=== PATIENT | female | born 1970 | race Caucasian/White ===

== ENCOUNTER 2019-01-03 07:05 | Inpatient (IN) | payer OTHER ==
[2019-01-03] MEDS ORDERED: ACETAMINOPHEN 1000 MG/100 ML VIAL (NON FORMULARY) IVPB ONE (08:01)
[2019-01-03] MEDS ORDERED: SODIUM CHLORIDE 1,000 ML IV STA ×2 (08:01→09:41)
[2019-01-03] MEDS ORDERED: METOCLOPRAMIDE HCL INJECTION 10 MG/2 ML VIAL IVPB ONE (08:01)
--- NOTE | 2019-01-03 08:07 | PDOC ---
History of Present Illness - General Chief Complaint: Headache Stated Complaint: HEADACHE Time Seen by Provider: 01/03/19 07:32 History Source: Patient Exam Limitations: No Limitations Past History - Travel Traveled outside of the country in the last 30 days: No Close contact w/someone who was outside of country & ill: No - Past Medical History Allergies/Adverse Reactions: Allergies Allergy/AdvReac Type Severity Reaction Status Date / Time No Known Allergies Allergy Verified 01/03/19 07:16 Home Medications: Ambulatory Orders NK [No Known Home Medication] 01/03/19 COPD: No Disorders: No Kidney Stones: No - Surgical History Cardiac Surgery: No GI Surgery: No - Immunization History TDAP Vaccination: No Immunization Up to Date: No - Suicide/Smoking/Psychosocial Hx Smoking History: Never smoked Have you smoked in the past 12 months: No Information on smoking cessation initiated: No Hx Alcohol Use: No Drug/Substance Use Hx: No Review of Systems - Review of Systems Able to Perform ROS?: Yes Comments:: 01/03/19 08:02 CONSTITUTIONAL: Absent: fever, chills, diaphoresis, generalized weakness, malaise, loss of appetite HEENT: Absent: rhinorrhea, nasal congestion, throat pain, throat swelling, difficulty swallowing, mouth swelling, ear pain, eye pain, visual Changes CARDIOVASCULAR: Absent: chest pain, loss of consciousness, palpitations, irregular heart rate, peripheral edema RESPIRATORY: Absent: cough, shortness of breath, dyspnea with exertion, orthopnea, wheezing, stridor, hemoptysis GASTROINTESTINAL: Absent: abdominal pain, abdominal distension, nausea, vomiting, diarrhea, constipation, melena, hematochezia GENITOURINARY: Absent: dysuria, frequency, urgency, hesitancy, hematuria, flank pain, genital pain MUSCULOSKELETAL: Absent: myalgia, arthralgia, joint swelling SKIN: Absent: rash, itching, pallor HEMATOLOGIC/IMMUNOLOGIC: Absent: easy bleeding, easy bruising, lymphadenopathy, frequent infections ENDOCRINE: Absent: unexplained weight gain, unexplained weight loss, heat intolerance, cold intolerance NEUROLOGIC: Present: headache, memory loss Absent: headache, focal weakness or paresthesias , dizziness, unsteady gait, seizure, mental status changes, bladder or bowel incontinence PSYCHIATRIC: Absent: anxiety, depression, suicidal or homicidal ideation, hallucinations. Is the patient limited Moldovan proficient: No *Physical Exam - Vital Signs Last Vital Signs Temp Pulse Resp BP Pulse Ox 98.2 F 64 16 128/72 97 01/03/19 07:17 01/03/19 07:17 01/03/19 07:17 01/03/19 07:17 01/03/19 07:17 - Physical Exam Comments: 01/03/19 08:02 GENERAL: Well developed, well nourished. Awake and alert x2; unable to recall birthday. No acute distress. HEENT: Normocephalic, atraumatic. PERRLA, EOMI. No conjunctival pallor. Sclera are non- icteric. Moist mucous membranes. Oropharynx is clear. NECK: Supple. Full ROM. No JVD. Carotid pulses 2+ and symmetric, without bruits. No thyromegaly. No lymphadenopathy. CARDIOVASCULAR: Regular rate and rhythm. No murmurs, rubs, or gallops. Distal pulses are 2+ and symmetric. PULMONARY: No evidence of respiratory distress. Lungs clear to auscultation bilaterally. No wheezing, rales or rhonchi. ABDOMINAL: Soft. Non-tender. Non-distended. No rebound or guarding. No organomegaly. Normoactive bowel sounds. MUSCULOSKELETAL Normal range of motion at all joints. No bony deformities or tenderness. No CVA tenderness. EXTREMITIES: No cyanosis. No clubbing. No edema. No calf tenderness. SKIN: Warm and dry. Normal capillary refill. No rashes. No jaundice. NEUROLOGICAL: Alert, awake, appropriate. Cranial nerves 2-12 intact. No deficits to light touch and temperature in face, upper extremities and lower extremities. No motor deficits in the in face, upper extremities and lower extremities. Normoreflexic in the upper and lower extremities. Normal speech. Toes are down- going bilaterally. Gait is normal without ataxia. PSYCHIATRIC: Cooperative. Good eye contact. Appropriate mood and affect. ED Treatment Course - LABORATORY CBC & Chemistry Diagram: 01/03/19 08:10 01/03/19 08:10 Medical Decision Making - Medical Decision Making 01/03/19 08:03 The patient is a 48-year-old female with no past medical history, who presents to the emergency department today for headache starting last night and memory loss. She is accompanied by her daughter. Her daughter states that last night at approximately 10:00 her mother complained of a headache. She also states that her mother did not recall the events from yesterday and that the patient did not remember going to a birthday republican. She states that today her mother is still having memory problems while complaining of headache. denies fevers, chills, shortness of breath, chest pain, nausea, vomiting and urinary symptoms, LOC, lightheadedness and weakness. A/P: Headache with memory loss On exam patient unable to recall her birthday.When questioned she does not remember what happened yesterday. She does know her name and where she is today. neurological exam is grossly intact. DDX includes: transient global amnesia, complex migraine, stroke Labs, EKG, urine, head CT, migraine cocktail Probable admission for MRI Re-evaluate Case discussed with Dr. Monson 01/03/19 08:12 EKG: NSR rate 62 BPM, Qtc 458. Normal axis. No acute ST-T wave changes 01/03/19 09:46 Pt able to recall birthday at this time; still unable to recall the events of yesterday CT Head and labs essentially negative at this time Spoke with Dr. Schuster, likely global transient amnesia at this time; can give toradol. If symptoms resolve, may DC Medicate and re-evaluate 01/03/19 11:11 Headache has resolved at this time; however, pt still unable to remember the events of yesterday Cannot remember name of PCP Will admit to Dr. Garcia, page sent and L/M on her voice mail. 01/03/19 12:[address] Garcia 01/03/19 12:34 Left additional voicemail for Dr. Garcia 01/03/19 15:[address] Garcia. Pt admitted to Dr. Lopez through [facility], Case discussed with Dr. Pennington *DC/Admit/Observation/Transfer Diagnosis at time of Disposition: TGA (transient global amnesia) - Discharge Dispostion Condition at time of disposition: Stable Decision to Admit order: Yes - Referrals - Patient Instructions - Post Discharge Activity
[2019-01-03 08:33] LABS: EPI CELLS 4.7 /HPF (0-5/HPF); HYALINE CASTS 0 /lpf (0-8); PH,URINE 6.5 (5.0-8.0); URINE APPEARANCE CLEAR; URINE BACTERIA 98.4 /hpf (NEGATIVE); URINE BILIRUBIN NEGATIVE (NEGATIVE); URINE COLOR YELLOW; URINE GLUCOSE (UA) NEGATIVE (NEGATIVE); URINE KETONE NEGATIVE (NEGATIVE); URINE LEUK ESTERASE 1+ (NEGATIVE); URINE NITRITE NEGATIVE (NEGATIVE); URINE PROTEIN NEGATIVE (NEGATIVE); URINE RBC 1 /hpf (0-4); URINE UROBILINOGEN 0.2 mg/dL (0.2-1.0); URINE WBC 4 /hpf (0-5)
[2019-01-03] MEDS ORDERED: ACETAMINOPHEN INJECTION 100 ML IVPB ONE (08:35)
[2019-01-03] MEDS ORDERED: METOCLOPRAMIDE HCL INJECTION 10 MG/2 ML VIAL ONE (08:35)
[2019-01-03 08:39] LABS: BASO % 1.1 % (0-2.0); EOS % 2.9 % (0-4.5); HEMATOCRIT 40.2 % (32.4-45.2); HEMOGLOBIN 13.7 GM/dL (10.7-15.3); LYMPH % 20.2 % (8-40); MCH 30.5 pg (25.7-33.7); MEAN CELL VOLUME 89.8 fl (80-96); MEAN PLT VOLUME 8.4 fl (7.5-11.1); MONO % 6.4 % (3.8-10.2); NEUT % 69.4 % (42.8-82.8); PLATELET COUNT 302 K/MM3 (134-434); RBC 4.48 M/mm3 (3.60-5.2); RDW 14.5 % (11.6-15.6); WHITE BLOOD COUNT 6.5 K/mm3 (4.0-10.0)
[2019-01-03 09:08] LABS: INR 0.94 (0.83-1.09); PROTHROMBIN TIME (PATIENT) 11.1 SEC (9.7-13.0)
[2019-01-03 09:17] LABS: ALBUMIN 3.5 g/dl (3.4-5.0); ALK PHOS 118 U/L (45-117); ANION GAP 3 MMOL/L (8-16); BILIRUBIN,TOTAL 0.5 mg/dL (0.2-1); BLOOD UREA NITROGEN 15.5 mg/dL (7-18); CALCIUM 8.7 mg/dL (8.5-10.1); CHLORIDE 106 mmol/L (98-107); CO2 30 mmol/L (21-32); CREATININE 0.5 mg/dL (0.55-1.3); GLUCOSE,RANDOM 109 mg/dL (74-106); POTASSIUM 4.5 mmol/L (3.5-5.1); SGOT/AST 27 U/L (15-37); SGPT/ALT 47 U/L (13-61); SODIUM 139 mmol/L (136-145); TOT PROT 6.9 g/dl (6.4-8.2)
[2019-01-03] MEDS ORDERED: KETOROLAC TROMETHAMINE 30 MG/1 ML VIAL IVPUSH ONE (09:41)
[2019-01-03] MEDS ORDERED: KETOROLAC TROMETHAMINE 30 MG/1 ML VIAL ONE (09:46)
--- NOTE | 2019-01-03 11:59 | EKG ---
Test Reason : Blood Pressure : / mmHG Vent. Rate : 062 BPM Atrial Rate : 062 BPM P-R Int : 140 ms QRS Dur : 088 ms QT Int : 452 ms P-R-T Axes : 061 019 026 degrees QTc Int : 458 ms NORMAL SINUS RHYTHM NORMAL ECG NO PREVIOUS ECGS AVAILABLE Confirmed by DORYS HAMILTON MD ([id number]) on 01/03/2019 11:58:41 AM Referred By: Confirmed By:DORYS HAMILTON MD
[2019-01-03] MEDS ORDERED: HEPARIN NA (PORCINE) 5,000 UNITS/ML 1ML VIAL ONE ×2 (15:46→22:13)
[2019-01-03] MEDS: HEPARIN NA (PORCINE) 5,000 UNITS/ML 1ML VIAL SQ SCH ×2 (15:47→22:39)
--- NOTE | 2019-01-03 15:53 | HP ---
CHIEF COMPLAINT: amnesia, headache PCP: none HISTORY OF PRESENT ILLNESS: Pt is a 48 y/o F from [facility] [place] (has been in [place] for several years) who presented to ED brought by daughter (present at bedside to help in history) because of headache and loss of memory. Pt was at a family gathering (evidently a going away green party for pts mother) yesterday evening when she was struck by severe headache and subsequently by memory loss. At this time, pt has no recollection of the green party. Her memory of this morning is intact. The daughter states that she received a call from a relative attending the event saying that the patient was complaining of bad headache and memory loss. Daughter states that she believes symptoms may have started shortly after pts mother left to fly back to [facility]. She could not think of any other antecedent events to the pts symptoms. Pt was stable in ED. Neurology was reportedly called and suggested diagnosis of transient global amnesia as a possibility. Pt currently feels ok. ER course was notable for: (1) normal vital signs and labs (2) (3) Recent Travel: none PAST MEDICAL HISTORY: none PAST SURGICAL HISTORY: none Social History: Smoking: none Alcohol: rare social drinker Drugs: denies Family History: denies Allergies No Known Allergies Allergy (Verified 01/03/19 07:16) HOME MEDICATIONS: Home Medications Medication Instructions Recorded NK [No Known Home Medication] 01/03/19 REVIEW OF SYSTEMS CONSTITUTIONAL: Absent: fever, chills, diaphoresis, generalized weakness, malaise, loss of appetite, weight change HEENT: Absent: rhinorrhea, nasal congestion, throat pain, throat swelling, difficulty swallowing, mouth swelling, ear pain, eye pain, visual changes CARDIOVASCULAR: Absent: chest pain, syncope, palpitations, irregular heart rate, lightheadedness , peripheral edema RESPIRATORY: Absent: cough, shortness of breath, dyspnea with exertion, orthopnea, wheezing, stridor, hemoptysis GASTROINTESTINAL: Absent: abdominal pain, abdominal distension, nausea, vomiting, diarrhea, constipation, melena, hematochezia GENITOURINARY: Absent: dysuria, frequency, urgency, hesitancy, hematuria, flank pain, genital pain MUSCULOSKELETAL: Absent: myalgia, arthralgia, joint swelling, back pain, neck pain SKIN: Absent: rash, itching, pallor HEMATOLOGIC/IMMUNOLOGIC: Absent: easy bleeding, easy bruising, lymphadenopathy, frequent infections ENDOCRINE: Absent: unexplained weight gain, unexplained weight loss, heat intolerance, cold intolerance NEUROLOGIC: amnesia Absent: headache, focal weakness or paresthesias, dizziness, unsteady gait, seizure, mental status changes, bladder or bowel incontinence PSYCHIATRIC: Absent: anxiety, depression, suicidal or homicidal ideation, hallucinations. PHYSICAL EXAMINATION Vital Signs - 24 hr 01/03/19 01/03/19 07:17 12:27 Temperature 98.2 F 97.8 F Pulse Rate 64 Pulse Rate [ 59 L Right] Respiratory 16 Rate Blood Pressure 128/72 Blood Pressure 102/63 [Right Arm] O2 Sat by Pulse 97 99 Oximetry (%) GENERAL: Awake, alert, and fully oriented, in no acute distress. HEAD: Normal with no signs of trauma. EYES: Pupils equal, round and reactive to light, extraocular movements intact, sclera anicteric, conjunctiva clear. No lid lag. EARS, NOSE, THROAT: Ears normal, nares patent, oropharynx clear without exudates. Moist mucous membranes. NECK: Normal range of motion, supple without lymphadenopathy, JVD, or masses. LUNGS: Breath sounds equal, clear to auscultation bilaterally. No wheezes, and no crackles. No accessory muscle use. HEART: Regular rate and rhythm, normal S1 and S2 without murmur, rub or gallop. ABDOMEN: Soft, nontender, not distended, normoactive bowel sounds, no guarding, no rebound, no masses. No hepatomegaly or splenomegaly. MUSCULOSKELETAL: Normal range of motion at all joints. No bony deformities or tenderness. No CVA tenderness. UPPER EXTREMITIES: 2+ pulses, warm, well-perfused. No cyanosis. No clubbing. No peripheral edema. LOWER EXTREMITIES: 2+ pulses, warm, well-perfused. No calf tenderness. No peripheral edema. NEUROLOGICAL: Cranial nerves II-XII intact. Normal speech. PSYCHIATRIC: Cooperative. Good eye contact. Appropriate mood and affect. SKIN: Warm, dry, normal turgor, no rashes or lesions noted, normal capillary refill. Laboratory Results - last 24 hr 01/03/19 01/03/19 01/03/19 08:08 08:08 08:10 WBC RBC Hgb Hct MCV MCH MCHC RDW Plt Count MPV Absolute Neuts (auto) Neutrophils % Lymphocytes % Monocytes % Eosinophils % Basophils % Nucleated RBC % PT with INR INR Sodium 139 Potassium 4.5 Chloride 106 Carbon Dioxide 30 Anion Gap 3 L BUN 15.5 Creatinine 0.5 L Est GFR (CKD-EPI)AfAm 132.65 Est GFR (CKD-EPI)NonAf 114.45 Random Glucose 109 H Calcium 8.7 Total Bilirubin 0.5 AST 27 ALT 47 Alkaline Phosphatase 118 H Creatine Kinase 96 Troponin I < 0.02 Total Protein 6.9 Albumin 3.5 Urine Color Yellow Urine Appearance Clear Urine pH 6.5 Ur Specific [place] 1.018 Urine Protein Negative Urine Glucose (UA) Negative Urine Ketones Negative Urine Blood Negative Urine Nitrite Negative Urine Bilirubin Negative Urine Urobilinogen 0.2 Ur Leukocyte Esterase 1+ H Urine WBC (Auto) 4 Urine RBC (Auto) 1 Urine Casts (Auto) 0 U Epithel Cells (Auto) 4.7 Urine Bacteria (Auto) 98.4 Urine HCG, Qual Negative 01/03/19 01/03/19 08:10 08:10 WBC 6.5 RBC 4.48 Hgb 13.7 Hct 40.2 MCV 89.8 MCH 30.5 MCHC 34.0 RDW 14.5 Plt Count 302 MPV 8.4 Absolute Neuts (auto) 4.5 Neutrophils % 69.4 Lymphocytes % 20.2 Monocytes % 6.4 Eosinophils % 2.9 Basophils % 1.1 Nucleated RBC % 0 PT with INR 11.10 INR 0.94 Sodium Potassium Chloride Carbon Dioxide Anion Gap BUN Creatinine Est GFR (CKD-EPI)AfAm Est GFR (CKD-EPI)NonAf Random Glucose Calcium Total Bilirubin AST ALT Alkaline Phosphatase Creatine Kinase Troponin I Total Protein Albumin Urine Color Urine Appearance Urine pH Ur Specific [place] Urine Protein Urine Glucose (UA) Urine Ketones Urine Blood Urine Nitrite Urine Bilirubin Urine Urobilinogen Ur Leukocyte Esterase Urine WBC (Auto) Urine RBC (Auto) Urine Casts (Auto) U Epithel Cells (Auto) Urine Bacteria (Auto) Urine HCG, Qual ASSESSMENT/PLAN: Pt is a 48 y/o F with no PMH who presents with headache and retrograde amnesia possibly following an emotional event. #Amnesia -persistent retrograde amnesia limited to last nights family green party -denies any heavy drinking/ingestion of any mind altering substance -neuro consulted -brain mri -tele Visit type - Emergency Visit Emergency Visit: Yes ED Registration Date: 01/03/19 Care time: The patient presented to the Emergency Department on the above date and was hospitalized for further evaluation of their emergent condition. - New Patient This patient is new to me today: Yes Date on this admission: 01/03/19 - Critical Care Critical Care patient: No ATTENDING PHYSICIAN STATEMENT I saw and evaluated the patient. I reviewed the resident's note and discussed the case with the resident. I agree with the resident's findings and plan as documented. SUBJECTIVE: OBJECTIVE: ASSESSMENT AND PLAN:
--- NOTE | 2019-01-03 16:14 | PN ---
Teaching Attending Note Name of Resident: Dexter Pennington ATTENDING PHYSICIAN STATEMENT I saw and evaluated the patient. I reviewed the resident's note and discussed the case with the resident. I agree with the resident's findings and plan as documented with exceptions below. SUBJECTIVE: 48 yof with no significant PMHx admitted with headache, reports of no recollection of events yesterday in the evening. But remembers events from this AM. Headache has resolved but still with no recollection. Denies any weakness, speech disturbances, LOC, dizziness or any concerns otherwise. OBJECTIVE: Vital Signs Period Temp Pulse Resp BP Sys/Stephens Pulse Ox Last 24 Hr 97.8 F-98.2 F 59-64 16 102-128/63-72 97-99 Intake & Output 12/31/18 01/01/19 01/02/19 01/03/19 23:59 23:59 23:59 23:59 Weight 150 lb GENERAL: Awake, alert, and fully oriented, in no acute distress. HEAD: Normal with no signs of trauma. EYES: Pupils equal, round and reactive to light, extraocular movements intact, sclera anicteric, conjunctiva clear. No lid lag. EARS, NOSE, THROAT: Ears normal, nares patent, oropharynx clear without exudates. Moist mucous membranes. NECK: Normal range of motion, supple without lymphadenopathy, JVD, or masses. LUNGS: Breath sounds equal, clear to auscultation bilaterally. No wheezes, and no crackles. No accessory muscle use. HEART: Regular rate and rhythm, normal S1 and S2 without murmur, rub or gallop. ABDOMEN: Soft, nontender, not distended, normoactive bowel sounds, no guarding, no rebound, no masses. No hepatomegaly or splenomegaly. MUSCULOSKELETAL: Normal range of motion at all joints. No bony deformities or tenderness. No CVA tenderness. UPPER EXTREMITIES: 2+ pulses, warm, well-perfused. No cyanosis. No clubbing. No peripheral edema. LOWER EXTREMITIES: 2+ pulses, warm, well-perfused. No calf tenderness. No peripheral edema. NEUROLOGICAL: AAOx3, facial symmetry, tongue midline, sensation intact and symmetic to light touch, toes downgoing, DTR bilaterally symmetric, speech normal, PERRL, EOMI, Cranial nerves II-XII intact. Normal speech. PSYCHIATRIC: Cooperative. Good eye contact. Appropriate mood and affect. SKIN: Warm, dry, normal turgor, no rashes or lesions noted, normal capillary refill. Home Medications Medication Instructions Recorded NK [No Known Home Medication] 01/03/19 Active Medications Heparin Sodium (Porcine) (Heparin -) 5,000 unit SQ TID DANILO Last Admin: 01/03/19 15:47 Dose: 5,000 unit Laboratory Results - last 24 hr 01/03/19 01/03/19 01/03/19 08:08 08:08 08:10 WBC RBC Hgb Hct MCV MCH MCHC RDW Plt Count MPV Absolute Neuts (auto) Neutrophils % Lymphocytes % Monocytes % Eosinophils % Basophils % Nucleated RBC % PT with INR INR Sodium 139 Potassium 4.5 Chloride 106 Carbon Dioxide 30 Anion Gap 3 L BUN 15.5 Creatinine 0.5 L Est GFR (CKD-EPI)AfAm 132.65 Est GFR (CKD-EPI)NonAf 114.45 Random Glucose 109 H Calcium 8.7 Total Bilirubin 0.5 AST 27 ALT 47 Alkaline Phosphatase 118 H Creatine Kinase 96 Troponin I < 0.02 Total Protein 6.9 Albumin 3.5 Urine Color Yellow Urine Appearance Clear Urine pH 6.5 Ur Specific [place] 1.018 Urine Protein Negative Urine Glucose (UA) Negative Urine Ketones Negative Urine Blood Negative Urine Nitrite Negative Urine Bilirubin Negative Urine Urobilinogen 0.2 Ur Leukocyte Esterase 1+ H Urine WBC (Auto) 4 Urine RBC (Auto) 1 Urine Casts (Auto) 0 U Epithel Cells (Auto) 4.7 Urine Bacteria (Auto) 98.4 Urine HCG, Qual Negative 01/03/19 01/03/19 08:10 08:10 WBC 6.5 RBC 4.48 Hgb 13.7 Hct 40.2 MCV 89.8 MCH 30.5 MCHC 34.0 RDW 14.5 Plt Count 302 MPV 8.4 Absolute Neuts (auto) 4.5 Neutrophils % 69.4 Lymphocytes % 20.2 Monocytes % 6.4 Eosinophils % 2.9 Basophils % 1.1 Nucleated RBC % 0 PT with INR 11.10 INR 0.94 Sodium Potassium Chloride Carbon Dioxide Anion Gap BUN Creatinine Est GFR (CKD-EPI)AfAm Est GFR (CKD-EPI)NonAf Random Glucose Calcium Total Bilirubin AST ALT Alkaline Phosphatase Creatine Kinase Troponin I Total Protein Albumin Urine Color Urine Appearance Urine pH Ur Specific [place] Urine Protein Urine Glucose (UA) Urine Ketones Urine Blood Urine Nitrite Urine Bilirubin Urine Urobilinogen Ur Leukocyte Esterase Urine WBC (Auto) Urine RBC (Auto) Urine Casts (Auto) U Epithel Cells (Auto) Urine Bacteria (Auto) Urine HCG, Qual C T brain results reviewed EKG: NSR, no acute ST-T changes ASSESSMENT AND PLAN: 48 yof with headache and transient global amnesia -Headache -Transient global amnesia Plan: CT brain neg Neurology input MRI brain Overnight telemetry Admit to obs, discussed with patient and daughter. Total admit time 45 min.
[2019-01-03] MEDS ORDERED: ACETAMINOPHEN 325 MG TABLET (FP) PO PRN (18:10)
[2019-01-03 21:20] LABS: COCAINE, UR NEGATIVE ng/ml (CUTOFF=300); METHADONE, UR NEGATIVE ng/ml (CUTOFF=300); OPIATES, URI NEGATIVE ng/ml (CUTOFF=300); PHENCYCLIDINE,URINE NEGATIVE ng/ml (CUTOFF=25); URINE AMPHETAMINES NEGATIVE ng/ml (CUTOFF=500); URINE BARBITURATES NEGATIVE ng/ml (CUTOFF=200); URINE BENZODIAZEPINES NEGATIVE ng/ml (CUTOFF=200)
[2019-01-04 06:45] LABS: HEMATOCRIT 37.7 % (32.4-45.2); HEMOGLOBIN 12.8 GM/dL (10.7-15.3); MCH 30.6 pg (25.7-33.7); MEAN PLT VOLUME 8.8 fl (7.5-11.1); PLATELET COUNT 278 K/MM3 (134-434); RBC 4.19 M/mm3 (3.60-5.2); RDW 14.5 % (11.6-15.6); WHITE BLOOD COUNT 5.8 K/mm3 (4.0-10.0)
[2019-01-04] MEDS ORDERED: HEPARIN NA (PORCINE) 5,000 UNITS/ML 1ML VIAL ONE ×2 (06:46→16:20)
[2019-01-04] MEDS: HEPARIN NA (PORCINE) 5,000 UNITS/ML 1ML VIAL SQ SCH ×3 (06:51→21:30)
[2019-01-04 06:56] LABS: BLOOD UREA NITROGEN 12.4 mg/dL (7-18); CALCIUM 7.9 mg/dL (8.5-10.1); CREATININE 0.4 mg/dL (0.55-1.3); POTASSIUM 3.3 mmol/L (3.5-5.1)
--- NOTE | 2019-01-04 09:15 | CONSULT ---
Consult - text type - Consultation Consultation Note: Neurology CHIEF COMPLAINT: amnesia, headache HISTORY OF PRESENT ILLNESS: 48 y/o F from [facility] (has been in [place]) who presented to ED brought by daughter (present at bedside to help in history) because of headache and loss of memory. Pt was at a family gathering (evidently a going away constitution party for pts mother) evening prior to admission when she developed a severe headache and subsequently by memory loss. At this time, pt has no recollection of the constitution party. The daughter stated that she received a call from a relative attending the event saying that the patient was complaining of bad headache and memory loss. Daughter stated that she believes symptoms may have started shortly after pts mother left to fly back to [facility]. She could not think of any other antecedent events to the pts symptoms. contacted by the emergency room resident and noncontrast head CT was negative. Advised that patient can follow up as outpatient if headache improves. Patient was admitted for further imaging an MRI brain. Awaiting completion and patient inquiring about discharge. She reports feeling at baseline without any complaints. Recent Travel: none PAST MEDICAL HISTORY: none PAST SURGICAL HISTORY: none Social History: Smoking: none Alcohol: rare social drinker Drugs: denies Family History: HTN Allergies No Known Allergies Allergy (Verified 01/03/19 07:16) HOME MEDICATIONS: Home Medications Medication Instructions Recorded NK [No Known Home Medication] 01/03/19 REVIEW OF SYSTEMS CONSTITUTIONAL: Absent: fever, chills, diaphoresis, generalized weakness, malaise, loss of appetite, weight change HEENT: Absent: rhinorrhea, nasal congestion, throat pain, throat swelling, difficulty swallowing, mouth swelling, ear pain, eye pain, visual changes CARDIOVASCULAR: Absent: chest pain, syncope, palpitations, irregular heart rate, lightheadedness , peripheral edema RESPIRATORY: Absent: cough, shortness of breath, dyspnea with exertion, orthopnea, wheezing, stridor, hemoptysis GASTROINTESTINAL: Absent: abdominal pain, abdominal distension, nausea, vomiting, diarrhea, constipation, melena, hematochezia GENITOURINARY: Absent: dysuria, frequency, urgency, hesitancy, hematuria, flank pain, genital pain MUSCULOSKELETAL: Absent: myalgia, arthralgia, joint swelling, back pain, neck pain SKIN: Absent: rash, itching, pallor HEMATOLOGIC/IMMUNOLOGIC: Absent: easy bleeding, easy bruising, lymphadenopathy, frequent infections ENDOCRINE: Absent: unexplained weight gain, unexplained weight loss, heat intolerance, cold intolerance NEUROLOGIC: amnesia Absent: headache, focal weakness or paresthesias, dizziness, unsteady gait, seizure, mental status changes, bladder or bowel incontinence PSYCHIATRIC: Absent: anxiety, depression, suicidal or homicidal ideation, hallucinations. PHYSICAL EXAMINATION Vital Signs Period Temp Pulse Resp BP Sys/Stephens Pulse Ox Last 24 Hr 97.8 F 59-80 102-130/60-70 99 GENERAL: Awake, alert, and fully oriented, in no acute distress. HEAD: Normal with no signs of trauma. EYES: Pupils equal, round and reactive to light, extraocular movements intact, sclera anicteric, conjunctiva clear. No lid lag. EARS, NOSE, THROAT: Ears normal, nares patent, oropharynx clear without exudates. Moist mucous membranes. NECK: Normal range of motion, supple without lymphadenopathy, JVD, or masses. LUNGS: Breath sounds equal, clear to auscultation bilaterally. No wheezes, and no crackles. No accessory muscle use. HEART: Regular rate and rhythm, normal S1 and S2 without murmur, rub or gallop. ABDOMEN: Soft, nontender, not distended, normoactive bowel sounds, no guarding, no rebound, no masses. No hepatomegaly or splenomegaly. MUSCULOSKELETAL: Normal range of motion at all joints. No bony deformities or tenderness. No CVA tenderness. UPPER EXTREMITIES: 2+ pulses, warm, well-perfused. No cyanosis. No clubbing. No peripheral edema. LOWER EXTREMITIES: 2+ pulses, warm, well-perfused. No calf tenderness. No peripheral edema. NEUROLOGICAL: Cranial nerves II-XII intact. Normal speech. PSYCHIATRIC: Cooperative. Good eye contact. Appropriate mood and affect. SKIN: Warm, dry, normal turgor, no rashes or lesions noted, normal capillary refill. Laboratory Results - last 24 hr 01/03/19 01/03/19 01/03/19 08:08 08:08 08:10 WBC RBC Hgb Hct MCV MCH MCHC RDW Plt Count MPV Absolute Neuts (auto) Neutrophils % Lymphocytes % Monocytes % Eosinophils % Basophils % Nucleated RBC % PT with INR INR Sodium 139 Potassium 4.5 Chloride 106 Carbon Dioxide 30 Anion Gap 3 L BUN 15.5 Creatinine 0.5 L Est GFR (CKD-EPI)AfAm 132.65 Est GFR (CKD-EPI)NonAf 114.45 Random Glucose 109 H Calcium 8.7 Total Bilirubin 0.5 AST 27 ALT 47 Alkaline Phosphatase 118 H Creatine Kinase 96 Troponin I < 0.02 Total Protein 6.9 Albumin 3.5 Urine Color Yellow Urine Appearance Clear Urine pH 6.5 Ur Specific [place] 1.018 Urine Protein Negative Urine Glucose (UA) Negative Urine Ketones Negative Urine Blood Negative Urine Nitrite Negative Urine Bilirubin Negative Urine Urobilinogen 0.2 Ur Leukocyte Esterase 1+ H Urine WBC (Auto) 4 Urine RBC (Auto) 1 Urine Casts (Auto) 0 U Epithel Cells (Auto) 4.7 Urine Bacteria (Auto) 98.4 Urine HCG, Qual Negative 01/03/19 01/03/19 08:10 08:10 WBC 6.5 RBC 4.48 Hgb 13.7 Hct 40.2 MCV 89.8 MCH 30.5 MCHC 34.0 RDW 14.5 Plt Count 302 MPV 8.4 Absolute Neuts (auto) 4.5 Neutrophils % 69.4 Lymphocytes % 20.2 Monocytes % 6.4 Eosinophils % 2.9 Basophils % 1.1 Nucleated RBC % 0 PT with INR 11.10 INR 0.94 Sodium Potassium Chloride Carbon Dioxide Anion Gap BUN Creatinine Est GFR (CKD-EPI)AfAm Est GFR (CKD-EPI)NonAf Random Glucose Calcium Total Bilirubin AST ALT Alkaline Phosphatase Creatine Kinase Troponin I Total Protein Albumin Urine Color Urine Appearance Urine pH Ur Specific [place] Urine Protein Urine Glucose (UA) Urine Ketones Urine Blood Urine Nitrite Urine Bilirubin Urine Urobilinogen Ur Leukocyte Esterase Urine WBC (Auto) Urine RBC (Auto) Urine Casts (Auto) U Epithel Cells (Auto) Urine Bacteria (Auto) Urine HCG, Qual ASSESSMENT/PLAN: 48 y/o F from [facility] ([place] been in [place] who presented to ED brought by daughter (present at bedside to help in history) because of headache and loss of memory. Pt was at a family gathering (evidently a going away constitution party for pts mother) evening prior to admission when she developed a severe headache and subsequently by memory loss. At this time, pt has no recollection of the constitution party. The daughter stated that she received a call from a relative attending the event saying that the patient was complaining of bad headache and memory loss. Daughter stated that she believes symptoms may have started shortly after pts mother left to fly back to [facility]. She could not think of any other antecedent events to the pts symptoms. contacted by the emergency room resident and noncontrast head CT was negative. Advised that patient can follow up as outpatient if headache improves. Patient was admitted for further imaging an MRI brain. Awaiting completion and patient inquiring about discharge. She reports feeling at baseline without any complaints. If MRI brain negative been likely can follow-up as outpatient. Can give 15 tabs Fioricet to be taken as needed for recurrence of headaches. Likely complicated migraine with transient global amnesia, improved.
[2019-01-04] MEDS ORDERED: POTASSIUM CHLORIDE TABS 20 MEQ TABLET.ER (FP) PO ONE ×2 (10:00→19:27)
--- NOTE | 2019-01-04 13:54 | PN ---
Teaching Attending Note Name of Resident: Dexter Pennington ATTENDING PHYSICIAN STATEMENT I saw and evaluated the patient. I reviewed the resident's note and discussed the case with the resident. I agree with the resident's findings and plan as documented with exceptions below. SUBJECTIVE: Patient seen and examined. no complaints, doing well. OBJECTIVE: Vital Signs Period Temp Pulse Resp BP Sys/Stephens Pulse Ox Last 24 Hr 79-80 130-130/60-70 Intake & Output 01/01/19 01/02/19 01/03/19 01/04/19 23:59 23:59 23:59 23:59 Weight 150 lb General: sitting in bed, no acute distress Neck: soft, supple, no JVD Chest: CTAB, no rales or wheezing Abdomen:soft, obese, NT Extremities: no edema Neuro: unchanged exam, non focal Home Medications Medication Instructions Recorded NK [No Known Home Medication] 01/03/19 Active Medications Acetaminophen (Tylenol -) 650 mg PO Q6H PRN PRN Reason: HEADACHE Aspirin (Ecotrin -) 81 mg PO DAILY DANILO Atorvastatin Calcium (Lipitor -) 40 mg PO HS DANILO Heparin Sodium (Porcine) (Heparin -) 5,000 unit SQ TID DANILO Last Admin: 01/04/19 06:51 Dose: 5,000 unit Laboratory Results - last 24 hr 01/03/19 01/04/19 01/04/19 20:15 06:00 06:00 WBC 5.8 RBC 4.19 Hgb 12.8 Hct 37.7 MCV 90.0 MCH 30.6 MCHC 34.0 RDW 14.5 Plt Count 278 MPV 8.8 Sodium 139 Potassium 3.3 L Chloride 106 Carbon Dioxide 26 Anion Gap 7 L BUN 12.4 Creatinine 0.4 L Est GFR (CKD-EPI)AfAm 142.75 Est GFR (CKD-EPI)NonAf 123.17 Random Glucose 96 Calcium 7.9 L Opiates Screen Negative Methadone Screen Negative Barbiturate Screen Negative Phencyclidine Screen Negative Ur Amphetamines Screen Negative MDMA (Ecstasy) Screen Negative Benzodiazepines Screen Negative Cocaine Screen Negative U Marijuana (THC) Screen Negative MRI brain results noted, 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 Plan: MRi brain noted. patient with no new neurological concerns. Carotid duplex noted. 2D echo/lipid panel ordered. Neuro Dr. Schuster updated, ASA/statin started. Patient tolerating diet well with no concerns, PT eval. Dispo dc home in 24 hours if no new concerns Discussed with nursing. Care co-ordinated with neurology.
[2019-01-04 14:13] LABS: CHOLESTEROL 211 mg/dL (50-200); HDL CHOLESTEROL 34 mg/dL (40-60); LDL CHOLESTEROL (ONLY SJRH) 92 mg/dL (5-100); TRIGLYCERIDES 627 mg/dL (0-150)
--- NOTE | 2019-01-04 14:56 | ECHO ---
Version: 1 Name: LASHANDA JUAREZ Exam: Adult Echocardiogram Study Date: 01/04/2019, 1:48 PM Age: 48 Years MMode/2D Measurements & Calculations IVSd: 0.82 cm LVIDs: 2.9 cm LVIDd: 4.2 cm LVPWd: 0.94 cm LVOT diam: 1.60 cm Ao root diam: 2.12 cm LA dimension: 3.2 cm Doppler Measurements & Calculations MV E max amari: 80.9 cm/sec Med E/e': 12.3 MV A max amari: 59.7 cm/sec Med Peak E' Amari: 6.6 cm/sec MV E/A: 1.36 Lat E/e': 7.4 Lat Peak E' Amari: 11.0 cm/sec Ao max P.0 mmHg THAO(I,D): 1.58 cm Ao mean P.0 mmHg LV V1 mean: 64.3 cm/sec Ao V2 max: 122.2 cm/sec LV V1 mean P.05 mmHg Left Ventricle The left ventricular size, thickness and function are normal. Ejection Fraction = 65. Left Ventricul ar Filling pattern is normal for age. Right Ventricle The right ventricle is normal in size and function. Atria Normal left and right atrial size and function. Mitral Valve The mitral valve is normal. There is trace mitral regurgitation. Tricuspid Valve The tricuspid valve is normal. There is trace tricuspid regurgitation. Aortic Valve The aortic valve is normal in structure and function. Pulmonic Valve The pulmonic valve leaflets are thin and pliable; valve motion is normal. Great Vessels The aortic root is normal size. Normal aortic arch, descending and ascending aorta. Pericardium/Pleura There is no pericardial effusion. Summary Statements The left ventricular size, thickness and function are normal Left Ventricular Filling pattern is normal for age. The right ventricle is normal in size and function. Normal left and right atrial size and function. The mitral valve is normal. There is trace mitral regurgitation. The tricuspid valve is normal. There is trace tricuspid regurgitation. The aortic valve is normal in structure and function. The pulmonic valve leaflets are thin and pliable; valve motion is normal. The aortic root is normal size. Normal aortic arch, descending and ascending aorta There is no pericardial effusion. Chace Lincolng 01/04/2019, 1:55 PM Ordering Physician: KEILA CASTREJON Referring Physician: KEILA CASTREJON Performed By: Karen Brar
--- NOTE | 2019-01-04 15:50 | PN ---
<Dexter Pennington - Last Filed: 01/04/19 16:01> Physical Exam: SUBJECTIVE: Patient seen and examined at bedside. No complaints. States she is starting to remember more about the alliance party. OBJECTIVE: Vital Signs Period Temp Pulse Resp BP Sys/Stephens Pulse Ox Last 24 Hr 79-80 130-130/60-70 GENERAL: The patient is awake, alert, and fully oriented, in no acute distress. HEAD: Normal with no signs of trauma. EYES: PERRL, extraocular movements intact, sclera anicteric, conjunctiva clear. No ptosis. ENT: Ears normal, nares patent, oropharynx clear without exudates, moist mucous membranes. NECK: Trachea midline, full range of motion, supple. LUNGS: Breath sounds equal, clear to auscultation bilaterally, no wheezes, no crackles, no accessory muscle use. HEART: Regular rate and rhythm, S1, S2 without murmur, rub or gallop. ABDOMEN: Soft, nontender, nondistended, normoactive bowel sounds, no guarding, no rebound, no hepatosplenomegaly, no masses. EXTREMITIES: 2+ pulses, warm, well-perfused, no edema. NEUROLOGICAL: Cranial nerves II through XII grossly intact. Normal speech, gait not observed. PSYCH: Normal mood, normal affect. SKIN: Warm, dry, normal turgor, no rashes or lesions noted Laboratory Results - last 24 hr 01/03/19 01/04/19 01/04/19 20:15 06:00 06:00 WBC 5.8 RBC 4.19 Hgb 12.8 Hct 37.7 MCV 90.0 MCH 30.6 MCHC 34.0 RDW 14.5 Plt Count 278 MPV 8.8 Sodium 139 Potassium 3.3 L Chloride 106 Carbon Dioxide 26 Anion Gap 7 L BUN 12.4 Creatinine 0.4 L Est GFR (CKD-EPI)AfAm 142.75 Est GFR (CKD-EPI)NonAf 123.17 Random Glucose 96 Calcium 7.9 L Triglycerides Cholesterol Total LDL Cholesterol HDL Cholesterol Opiates Screen Negative Methadone Screen Negative Barbiturate Screen Negative Phencyclidine Screen Negative Ur Amphetamines Screen Negative MDMA (Ecstasy) Screen Negative Benzodiazepines Screen Negative Cocaine Screen Negative U Marijuana (THC) Screen Negative 01/04/19 06:00 WBC RBC Hgb Hct MCV MCH MCHC RDW Plt Count MPV Sodium Potassium Chloride Carbon Dioxide Anion Gap BUN Creatinine Est GFR (CKD-EPI)AfAm Est GFR (CKD-EPI)NonAf Random Glucose Calcium Triglycerides 627 H Cholesterol 211 H Total LDL Cholesterol 92 HDL Cholesterol 34 L Opiates Screen Methadone Screen Barbiturate Screen Phencyclidine Screen Ur Amphetamines Screen MDMA (Ecstasy) Screen Benzodiazepines Screen Cocaine Screen U Marijuana (THC) Screen Active Medications Generic Name Dose Route Start Last Admin Trade Name Freq PRN Reason Stop Dose Admin Acetaminophen 650 mg 01/03/19 18:10 Tylenol - PO Q6H PRN HEADACHE Aspirin 81 mg 01/04/19 14:00 Ecotrin - PO DAILY DANILO Atorvastatin Calcium 40 mg 01/04/19 22:00 Lipitor - PO HS DANILO Heparin Sodium (Porcine) 5,000 unit 01/03/19 15:45 01/04/19 06:51 Heparin - SQ 5,000 unit TID DANILO Administration ASSESSMENT/PLAN: Pt is a 48 y/o F with no PMH who presents with headache and retrograde amnesia possibly following an emotional event. #Amnesia -persistent retrograde amnesia limited to last nights family alliance party -denies any heavy drinking/ingestion of any mind altering substance -neuro consulted -brain mri significant for hippocampal lesion -tele -echo: normal LV -statin, ASA -carotid dopplers: no severe stenosis -lipids Visit type - Emergency Visit Emergency Visit: No - New Patient This patient is new to me today: No - Critical Care Critical Care patient: No ATTENDING PHYSICIAN STATEMENT I saw and evaluated the patient. I reviewed the resident's note and discussed the case with the resident. I agree with the resident's findings and plan as documented. SUBJECTIVE: OBJECTIVE: ASSESSMENT AND PLAN: <Tyler Bedolla - Last Filed: 01/05/19 15:20> Physical Exam: SUBJECTIVE: Patient seen and examined OBJECTIVE: Vital Signs Period Temp Pulse Resp BP Sys/Stephens Pulse Ox Last 24 Hr 97.5 F-98.6 F 58-67 16-18 104-138/70-91 99-99 GENERAL: The patient is awake, alert, and fully oriented, in no acute distress. HEAD: Normal with no signs of trauma. EYES: PERRL, extraocular movements intact, sclera anicteric, conjunctiva clear. No ptosis. ENT: Ears normal, nares patent, oropharynx clear without exudates, moist mucous membranes. NECK: Trachea midline, full range of motion, supple. LUNGS: Breath sounds equal, clear to auscultation bilaterally, no wheezes, no crackles, no accessory muscle use. HEART: Regular rate and rhythm, S1, S2 without murmur, rub or gallop. ABDOMEN: Soft, nontender, nondistended, normoactive bowel sounds, no guarding, no rebound, no hepatosplenomegaly, no masses. EXTREMITIES: 2+ pulses, warm, well-perfused, no edema. NEUROLOGICAL: Cranial nerves II through XII grossly intact. Normal speech, gait not observed. PSYCH: Normal mood, normal affect. SKIN: Warm, dry, normal turgor, no rashes or lesions noted Laboratory Results - last 24 hr 01/05/19 01/05/19 01/05/19 05:15 05:15 08:20 WBC 5.5 RBC 4.28 Hgb 13.3 Hct 38.6 MCV 90.0 MCH 31.0 MCHC 34.4 RDW 14.5 Plt Count 312 MPV 9.4 ESR Sodium 139 140 Potassium 4.0 4.3 Chloride 106 109 H Carbon Dioxide 25 26 Anion Gap 7 L 5 L BUN 16.5 18.6 H Creatinine 0.6 0.5 L Est GFR (CKD-EPI)AfAm 124.92 132.65 Est GFR (CKD-EPI)NonAf 107.78 114.45 Random Glucose 142 H 120 H Calcium 8.0 L 8.6 Total Bilirubin 0.3 AST 38 H ALT 64 H Alkaline Phosphatase 114 C-Reactive Protein < 0.3 Total Protein 6.9 Albumin 3.4 Triglycerides 815 H Cholesterol 200 Total LDL Cholesterol 85 HDL Cholesterol 32 L Vitamin B12 535 RPR Titer 01/05/19 01/05/19 08:20 08:20 WBC RBC Hgb Hct MCV MCH MCHC RDW Plt Count MPV ESR 5 Sodium Potassium Chloride Carbon Dioxide Anion Gap BUN Creatinine Est GFR (CKD-EPI)AfAm Est GFR (CKD-EPI)NonAf Random Glucose Calcium Total Bilirubin AST ALT Alkaline Phosphatase C-Reactive Protein Total Protein Albumin Triglycerides Cholesterol Total LDL Cholesterol HDL Cholesterol Vitamin B12 RPR Titer Nonreactive ASSESSMENT/PLAN: ATTENDING PHYSICIAN STATEMENT I saw and evaluated the patient. I reviewed the resident's note and discussed the case with the resident. I agree with the resident's findings and plan as documented. SUBJECTIVE: OBJECTIVE: ASSESSMENT AND PLAN:
[2019-01-04] MEDS ORDERED: ASPIRIN COATED 81 MG TABLET.EC ONE (16:19)
[2019-01-04] MEDS: ASPIRIN COATED 81 MG TABLET.EC PO SCH (16:23)
[2019-01-04 18:20] VITALS: BMI 27.8
[2019-01-04] MEDS ORDERED: ATORVASTATIN CA 40 MG TABLET (FP) PO SCH (22:00)
[2019-01-05 06:16] LABS: MCHC 34.4 g/dl (32.0-36.0); RDW 14.5 % (11.6-15.6); WHITE BLOOD COUNT 5.5 K/mm3 (4.0-10.0)
[2019-01-05 06:47] LABS: HEMATOCRIT 38.6 % (32.4-45.2); HEMOGLOBIN 13.3 GM/dL (10.7-15.3); MEAN PLT VOLUME 9.4 fl (7.5-11.1); PLATELET COUNT 312 K/MM3 (134-434); RBC 4.28 M/mm3 (3.60-5.2)
[2019-01-05 06:50] LABS: BLOOD UREA NITROGEN 16.5 mg/dL (7-18); CREATININE 0.6 mg/dL (0.55-1.3)
[2019-01-05] MEDS ORDERED: ACETAMINOPHEN/CAFFEINE/BUTALBITAL 1 TAB PO PRN (06:55)
[2019-01-05] MEDS: HEPARIN NA (PORCINE) 5,000 UNITS/ML 1ML VIAL SQ SCH (07:03)
--- NOTE | 2019-01-05 07:53 | PN ---
Teaching Attending Note Name of Resident: Dexter Pennington ATTENDING PHYSICIAN STATEMENT I saw and evaluated the patient. I reviewed the resident's note and discussed the case with the resident. I agree with the resident's findings and plan as documented. SUBJECTIVE: OBJECTIVE: ASSESSMENT AND PLAN:
--- NOTE | 2019-01-05 08:25 | PN ---
Progress Note (short form) - Note Progress Note: Neurology CHIEF COMPLAINT: amnesia, headache HISTORY OF PRESENT ILLNESS: 48 y/o F from [facility] (has been in [place]) who presented to ED brought by daughter (present at bedside to help in history) because of headache and loss of memory. Pt was at a family gathering (evidently a going away republican for pts mother) evening prior to admission when she developed a severe headache and subsequently by memory loss. At this time, pt has no recollection of the republican. The daughter stated that she received a call from a relative attending the event saying that the patient was complaining of bad headache and memory loss. Daughter stated that she believes symptoms may have started shortly after pts mother left to fly back to [facility]. She could not think of any other antecedent events to the pts symptoms. Contacted by the emergency room resident and noncontrast head CT was negative. Advised that patient can follow up as outpatient if headache improves. Patient was admitted for further imaging an MRI brain. Brain MRI completed - small lacunar infarction in the lateral left hippocampus which is etiology to her memory complaints. Carotid Doppler completed - minimal thickening without significant stenosis. Echocardiogram shows trace mitral and tricuspid valve regurgitation. 15 tabs Fioricet can be ordered to be taken as needed for recurrence of headaches, though currently does not have headache any longer. She reports feeling at baseline without any complaints. Outpatient follow up information given, for d/ c today. Active Medications Acetaminophen/Butalbital/Caffeine (Fioricet -) 1 tablet PO Q6H PRN PRN Reason: HEADACHE Aspirin (Ecotrin -) 81 mg PO DAILY [facility] Last Admin: 01/04/19 16:23 Dose: 81 mg Atorvastatin Calcium (Lipitor -) 40 mg PO HS [facility] Last Admin: 01/04/19 21:30 Dose: 40 mg Heparin Sodium (Porcine) (Heparin -) 5,000 unit SQ TID [facility] Last Admin: 01/05/19 07:03 Dose: 5,000 unit PHYSICAL EXAMINATION Vital Signs Period Temp Pulse Resp BP Sys/Stephens Pulse Ox Last 24 Hr 97.5 F-98.6 F 58-67 16-18 104-138/70-91 99-99 GENERAL: Awake, alert, and fully oriented, in no acute distress. HEAD: Normal with no signs of trauma. EYES: Pupils equal, round and reactive to light, extraocular movements intact, sclera anicteric, conjunctiva clear. No lid lag. EARS, NOSE, THROAT: Ears normal, nares patent, oropharynx clear without exudates. Moist mucous membranes. NECK: Normal range of motion, supple without lymphadenopathy, JVD, or masses. LUNGS: Breath sounds equal, clear to auscultation bilaterally. No wheezes, and no crackles. No accessory muscle use. HEART: Regular rate and rhythm, normal S1 and S2 without murmur, rub or gallop. ABDOMEN: Soft, nontender, not distended, normoactive bowel sounds, no guarding, no rebound, no masses. No hepatomegaly or splenomegaly. MUSCULOSKELETAL: Normal range of motion at all joints. No bony deformities or tenderness. No CVA tenderness. UPPER EXTREMITIES: 2+ pulses, warm, well-perfused. No cyanosis. No clubbing. No peripheral edema. LOWER EXTREMITIES: 2+ pulses, warm, well-perfused. No calf tenderness. No peripheral edema. NEUROLOGICAL: Cranial nerves II-XII intact. Normal speech. PSYCHIATRIC: Cooperative. Good eye contact. Appropriate mood and affect. SKIN: Warm, dry, normal turgor, no rashes or lesions noted, normal capillary refill. CBCD WBC 5.5 K/mm3 (4.0-10.0) 01/05/19 05:15 RBC 4.28 M/mm3 (3.60-5.2) 01/05/19 05:15 Hgb 13.3 GM/dL (10.7-15.3) 01/05/19 05:15 Hct 38.6 % (32.4-45.2) 01/05/19 05:15 MCV 90.0 fl (80-96) 01/05/19 05:15 MCHC 34.4 g/dl (32.0-36.0) 01/05/19 05:15 RDW 14.5 % (11.6-15.6) 01/05/19 05:15 Plt Count 312 K/MM3 (134-434) 01/05/19 05:15 MPV 9.4 fl (7.5-11.1) 01/05/19 05:15 CMP Sodium 139 mmol/L (136-145) 01/05/19 05:15 Potassium 4.0 mmol/L (3.5-5.1) 01/05/19 05:15 Chloride 106 mmol/L (98-107) 01/05/19 05:15 Carbon Dioxide 25 mmol/L (21-32) 01/05/19 05:15 Anion Gap 7 MMOL/L (8-16) L 01/05/19 05:15 BUN 16.5 mg/dL (7-18) 01/05/19 05:15 Creatinine 0.6 mg/dL (0.55-1.3) 01/05/19 05:15 Random Glucose 142 mg/dL (74-106) H 01/05/19 05:15 Calcium 8.0 mg/dL (8.5-10.1) L 01/05/19 05:15 Total Bilirubin 0.5 mg/dL (0.2-1) 01/03/19 08:10 AST 27 U/L (15-37) 01/03/19 08:10 ALT 47 U/L (13-61) 01/03/19 08:10 Alkaline Phosphatase 118 U/L (45-117) H 01/03/19 08:10 Total Protein 6.9 g/dl (6.4-8.2) 01/03/19 08:10 Albumin 3.5 g/dl (3.4-5.0) 01/03/19 08:10 CARDIAC ENZYMES Creatine Kinase 96 U/L (26-192) 01/03/19 08:10 Troponin I < 0.02 ng/ml (0.00-0.05) 01/03/19 08:10 ASSESSMENT/PLAN: 48 y/o F from [facility] ([place] in [place]) who presented to ED brought by daughter (present at bedside to help in history) because of headache and loss of memory. Pt was at a family gathering (evidently a going away republican for pts mother) evening prior to admission when she developed a severe headache and subsequently by memory loss. At this time, pt has no recollection of the republican. The daughter stated that she received a call from a relative attending the event saying that the patient was complaining of bad headache and memory loss. Daughter stated that she believes symptoms may have started shortly after pts mother left to fly back to [facility]. She could not think of any other antecedent events to the pts symptoms. contacted by the emergency room resident and noncontrast head CT was negative. Advised that patient can follow up as outpatient if headache improves. Patient was admitted for further imaging an MRI brain. Brain MRI completed - small lacunar infarction in the lateral left hippocampus which is etiology to her memory complaints. Carotid Doppler completed - minimal thickening without significant stenosis. Echocardiogram shows trace mitral and tricuspid valve regurgitation. 15 tabs Fioricet can be ordered to be taken as needed for recurrence of headaches, though currently does not have headache any longer. She reports feeling at baseline without any complaints. Outpatient follow up information given, for d/ c today. Likely complicated migraine with transient global amnesia, improved.
[2019-01-05] MEDS: ASPIRIN COATED 81 MG TABLET.EC PO SCH (10:21)
[2019-01-05 10:45] VITALS: BP 105/76; PULSE 66; TEMP 98.2
[2019-01-05 10:58] LABS: ALBUMIN 3.4 g/dl (3.4-5.0); ALK PHOS 114 U/L (45-117); ANION GAP 5 MMOL/L (8-16); BILIRUBIN,TOTAL 0.3 mg/dL (0.2-1); BLOOD UREA NITROGEN 18.6 mg/dL (7-18); CALCIUM 8.6 mg/dL (8.5-10.1); CHLORIDE 109 mmol/L (98-107); CO2 26 mmol/L (21-32); CREATININE 0.5 mg/dL (0.55-1.3); GLUCOSE,RANDOM 120 mg/dL (74-106); POTASSIUM 4.3 mmol/L (3.5-5.1); SGOT/AST 38 U/L (15-37); SGPT/ALT 64 U/L (13-61); SODIUM 140 mmol/L (136-145); TOT PROT 6.9 g/dl (6.4-8.2)
--- NOTE | 2019-01-05 15:21 | DS ---
Physical Examination Vital Signs: Vital Signs Temperature 98.2 F 01/05/19 09:00 Pulse Rate 66 01/05/19 09:00 Respiratory Rate 18 01/05/19 09:00 Blood Pressure 105/76 01/05/19 09:00 O2 Sat by Pulse Oximetry (%) 99 01/05/19 09:00 Findings/Remarks: Please see resident note for full DC summary; agree with their documentation aside from as supplemented by myself. Labs: CBC, BMP 01/05/19 05:15 01/05/19 08:20 Discharge Summary Reason For Visit: TRANSIENT GLOBAL AMNESIA Condition: Stable - Instructions Diet, Activity, Other Instructions: You were in the hospital because of a stroke. You will need to follow up with the following doctors: Dr. Pennington, Primary Care 3-5 days at the resident clinic Dr. Schuster, Neurology within 1-2 weeks You are being discharged on the following medications: Aspirin 81 mg daily Lipitor 40 mg at night Fioricet If you experience any other symptoms call your doctor or return to the emergency department. Referrals: Chapin Landon MD [Staff Physician] - Dex[facility] Pennington [facility] [Resident] - Jorge Schuster MD [Staff Physician] - 1 Week Disposition: HOME - Home Medications Comprehensive Discharge Medication List: Ambulatory Orders Acetaminophen [Tylenol .Regular Strength -] 650 mg PO Q6H PRN #15 tablet Aspirin Coated [Ecotrin -] 81 mg PO DAILY #30 tablet.ec 01/05/19 Atorvastatin Ca [Lipitor] 40 mg PO HS #30 tablet 01/05/19 This patient is new to me today: Yes Date on this admission: 01/05/19 Emergency Visit: No Critical Care patient: No - Discharge Referral Referred to [facility] Yes Physician Referral: Jeffery Gilmore MD (Int Med) (Res clinic) Quality Measures-Exclusions - Ischemic Stroke Reason Rehab not ordered: Test/procedure in Progress (Patient was able to ambulate 100 feet on exam without any abnormality and is otherwise healthy 48 y/ o. Swallow not ordered as passes [facility] assessment and no complaints of dysphagia.)
== END 2019-01-05 13:35 | disposition home or self-care (01) | DRG 45 ==
LOC: JER 07:05 → JERBED 14:59 → J4S 01-04 17:01 → OBSVTOIN 01-05 10:44
PROVIDERS: ADMIT Hospitalist; ATTEND Internal Medicine
DX: I63.81 Other cerebral infarction due to occlusion or stenosis of small artery (principal); G45.4 Transient global amnesia; G43.909 Migraine, unspecified, not intractable, without status migrainosus
CPT/HCPCS: 36415; 70450-TC; 70551-TC; 80048; 80053; 80061; 80307; 81003; 82550; 82607; 83721; 84484; 84703; 85025; 85027; 85610; 85651; 86038; 86140; 86593; 86803; 87086; 87389; 93005; 93010; 93306-TC; 93880-TC; 97116-GP; 97161-GP; 99285-25; G0378; J0131; J1644; J7030